=== PATIENT | female | born 1940 | race Two or more races ===

== ENCOUNTER 2018-06-26 19:21 | Inpatient (IN) | payer MEDICARE ==
[~2018-06-26] VITALS: Ht 165.1 cm; Wt 44.9 kg
[2018-06-26 19:30] VITALS: BP 101/58
--- NOTE | 2018-06-26 19:30 | NUR ---
GPS-RN ADMITTED A 78-Y/O FEMALE, FROM [facility]. PT IS ON 5150 HOLD FOR GRAVELY DISABLED. PER HOLD PATIENT UNABLE TO LIVE ON HER OWN SAFETY, HAD SEVERAL FALLS, REFUSED TO TAKE MEDICATIONS, PATIENT BECAME SO AGITATED AT THE MEMORY FACILITY THAT SHE HAD TO BE HOSPITALIZED. UPON FACE TO FACE ASSESSMENT, PATIENT APPEARS TO BE ALERT, CONFUSED, DISORGANIZED, UNCOOPERATIVE. NO ACUTE DISTRESS NOTED. INCONTINENT OF BOWEL AND BLADDER. AMBULATORY WITH ASSISTIVE DEVICE. BELONGINGS INVENTORIED AND CHECKED FOR CONTRABAND. PATIENT IS UNDER THE PSYCHIATRIC CARE OF DR. BIGGS, ORDERS OBTAINED, AND UNDER THE MEDICAL CARE OF DR. ADKINS, BOTH DOCTORS ARE AWARE OF THE ADMISSION. SKIN BODY ASSESSMENT DONE. BED LOCKED AND PLACED IN LOWEST POSITION. ROOM SAFETY CHECKED. FALL PRECAUTIONS IMPLEMENTED. NEXT OF KIN MERISSA PECK DAUGHTER MADE AWARE OF HER ADMISSION. WILL CONTINUE TO MONITOR Q15MIN ROUNDS FOR SAFETY AND BEHAVIOR.
[2018-06-26 20:27] VITALS: BP 101/48
[2018-06-26] MEDS ORDERED: LEVO25TA7 PO (20:34)
[2018-06-26] MEDS ORDERED: MAG HYDROX/AL HYDROX/SIMETH 30 ML UDC PO PRN (21:30)
[2018-06-26] MEDS ORDERED: MAGNESIUM HYDROXIDE 30 ML UDC PO PRN (21:30)
[2018-06-26] MEDS ORDERED: ACETAMINOPHEN 325 MG TABLET PO PRN (21:30)
[2018-06-26] MEDS ORDERED: SERT25TA PO (23:00)
[2018-06-26] MEDS ORDERED: QUET25TA PO (23:00)
[2018-06-27 07:23] LABS: BASOPHILS # (AUTO) 0.1 /CMM (0.0-0.2); BASOPHILS % (AUTO) 1.2 % (0.0-2.0); HEMATOCRIT 41 % (33-45); HEMOGLOBIN 13.3 g/dL (11.5-14.8); LYMPHOCYTES # (AUTO) 1.2 /CMM (0.8-4.8); LYMPHOCYTES % (AUTO) 26.6 % (20.0-44.0); MEAN CORPUSCULAR HEMOGLOBIN 32 PG (26.0-33.0); MEAN CORPUSCULAR HGB CONC 33 g/dl (31.0-36.0); MEAN CORPUSCULAR VOLUME 96 fL (82-100); MONOCYTES # (AUTO) 0.5 /CMM (0.1-1.30); MONOCYTES % (AUTO) 9.9 % (2.0-12.0); NEUTROPHILS # (AUTO) 2.7 /CMM (1.8-8.9); NEUTROPHILS % (AUTO) 57.3 % (43.0-81.0); PLATELET COUNT (AUTO) 298 /CMM (150-450); RDW COEFFICIENT OF VARIATION 13.2 (11.5-15.0); RED BLOOD CELL COUNT(AUTO) 4.21 MIL/uL (4.0-5.2); WHITE BLOOD COUNT (AUTO) 4.7 K/uL (4.3-11.0)
[2018-06-27 07:53] LABS: CHOLESTEROL 215 mg/dL (<200); HDL CHOLESTEROL 64 mg/dL (40-60); LDL 135 mg/dL (0-99); TRIGLYCERIDES 63 mg/dL (30-150)
[2018-06-27 07:59] LABS: ALANINE AMINOTRANSFERASE 22 U/L (12-78); ALKALINE PHOSPHATASE 49 U/L (46-116); ASPARTATE AMINOTRANSFERASE 22 U/L (15-37); BILIRUBIN,TOTAL 0.5 mg/dL (0.2-1.0); CALCIUM, SERUM 8.4 mg/dL (8.5-10.1); CARBON DIOXIDE 28 mmol/L (21-32); CHLORIDE 106 mmol/L (98-107); CREATININE 0.4 mg/dL (0.6-1.3); GLUCOSE 93 mg/dL (74-106); SODIUM SERUM 142 mmol/L (136-145); UREA NITROGEN, BLOOD 23 mg/dL (7-18)
[2018-06-27 08:00] VITALS: BP 100/65
[2018-06-27] MEDS ORDERED: QUETIAPINE FUMARATE 25 MG TABLET PO SCH (09:00)
--- NOTE | 2018-06-27 11:15 | NUR ---
FINESSE contacted pts ozzie Sauceda [phone] for collateral information and discharge planning. Addendum: 07/11/18 at 0835 by THIAGO KILPATRICK Pts ozzie Sauceda stated that pt will return to [facility] [address] [facility] [address]. Pts daughter also stated she was currently in [place] and couldn't be available until next week.
--- NOTE | 2018-06-27 14:15 | NUR ---
INITIAL DISCHARGE PLAN: Per pts daughter pt [place] [facility] [address] [place] [id number] . FINESSE spoke with [facility] certified wellness program manager at facility who stated pt can return to facility upon evaluation. FINESSE will help form a safe and proper discharge in collaboration with MD and pts daughter.
[2018-06-27 16:00] VITALS: BP 120/70
[2018-06-27 20:18] VITALS: BP 115/63
[2018-06-27] MEDS: risperiDONE 0.25 MG TABLET PO SCH (20:46)
[2018-06-27] MEDS: RIVASTIGMINE TARTRATE 1.5 MG CAPSULE PO SCH (20:46)
[2018-06-27] MEDS: TEMAZEPAM 7.5 MG CAPSULE PO PRN (22:43)
--- NOTE | 2018-06-27 22:43 | NUR ---
GPS-RN PATIENT C/O UNABLE TO STAY ASLEEP. VSS. ADMINISTERED RESTORIL 7.5MG PO ORDERED. WILL CONTINUE TO MONITOR.
[2018-06-28] MEDS ORDERED: QUET25TA PO (05:07)
[2018-06-28] MEDS ORDERED: SERT25TA PO (05:07)
[2018-06-28 08:00] VITALS: BP 120/52
[2018-06-28] MEDS: RIVASTIGMINE TARTRATE 1.5 MG CAPSULE PO SCH ×2 (09:03→17:37)
[2018-06-28] MEDS: risperiDONE 0.25 MG TABLET PO SCH ×2 (09:03→17:37)
--- NOTE | 2018-06-28 15:00 | NUR ---
GPS/RN DR ZAVALA NOTIFIED REGARDING PATIENT'S HOME MEDICATION OF LEVOTHYROXINE 25 MG DAILY. AWAITING INPUT IN SYSTEM.
[2018-06-28 16:00] VITALS: BP 122/75
--- NOTE | 2018-06-28 19:35 | NUR ---
RN INITIAL NOTES: PT IN THE ROOM, A/O X1-2,ON RA RESPIRATION EVEN AND UNLABORED, DENIES ANY PAIN OR DISCOMFORT AT THIS TIME, DENIES ANY SI/HI. PT IS DISORGANIZED, WITHDRAWN,ISOLATIVE, AND ENCOURAGEMENT TO PARTICIPATE IN ACTIVITIES WERE PROVIDED, REALITY ORIENTATION PROVIDED.PT IS MED COMPLIANT. SAFETY PRECAUTIONS FOR FALL INITIATED, WILL CONTINUE TO MONITOR FOR SAFETY [id number] AND FOR ANY CHANGES IN BEHAVIOR.
[2018-06-28 20:00] VITALS: BP 101/71
[2018-06-28 20:23] VITALS: BP 101/71
--- NOTE | 2018-06-29 06:46 | NUR ---
rn closing notes: pt remains isolative, but calm and cooperative, denies any pain or discomfort at this time denies any si/hi. vs remains stable, needs attended and anticipated. will continue to monitor pt safety [id number] and for any changes in behavior. will endorse to day rn for continuity of care.
[2018-06-29 08:00] VITALS: BP 100/59
[2018-06-29] MEDS: RIVASTIGMINE TARTRATE 1.5 MG CAPSULE PO SCH ×2 (08:43→17:09)
[2018-06-29] MEDS: risperiDONE 0.25 MG TABLET PO SCH ×2 (08:43→17:09)
--- NOTE | 2018-06-29 10:48 | NUR ---
WOUND CARE CONSULT: VERY LIMITED ASSESSMENT DUE TO PT REFUSING SKIN ASSESSMENT EXCEPT FOR RT ELBOW. SUTURES NOTED TO RT ELBOW WITH HEALED AREA AND SOME CRUSTING, NO DRAINAGE,NO REDNESS OR TENDERNESS. DEFER TO MD FOR ELBOW. WILL SEE PRN. PT IS AMBULATORY PER NURSING STAFF. Addendum: 06/29/18 at 1049 by WALT ECHEVERRIA WNDNU Amended: Links added.
[2018-06-29] MEDS: Z GUARD REMEDY 2 OZ OINT TP SCH ×2 (11:00→21:32)
--- NOTE | 2018-06-29 11:25 | NUR ---
gps security and privacy consultant: md visit seen by dr. oh at this time.
[2018-06-29 16:00] VITALS: BP 136/87
[2018-06-29 20:00] VITALS: BP 107/48
[2018-06-30 08:00] VITALS: BP 100/68
--- NOTE | 2018-06-30 12:00 | NUR ---
VISITOR IN TO SEE PT.
[2018-06-30] MEDS: RIVASTIGMINE TARTRATE 1.5 MG CAPSULE PO SCH ×2 (12:30→17:00)
--- NOTE | 2018-06-30 12:30 | NUR ---
REFUSED AM MEDS AT THIS TIME,NOT OFFERED EARLIER PT. DID NOT AWAKEN TILL AFTERNOON.
[2018-06-30] MEDS: LEVOTHYROXINE SODIUM 25 MCG TABLET PO SCH (13:38)
[2018-06-30] MEDS: risperiDONE 0.25 MG TABLET PO SCH ×2 (13:38→17:00)
[2018-06-30] MEDS: Z GUARD REMEDY 2 OZ OINT TP SCH ×2 (13:39→20:39)
[2018-06-30 15:55] LABS: CALCIUM, SERUM 8.9 mg/dL (8.5-10.1); CARBON DIOXIDE 30 mmol/L (21-32); CHLORIDE 103 mmol/L (98-107); CREATININE 0.5 mg/dL (0.6-1.3); GLUCOSE 106 mg/dL (74-106); PHOSPHORUS 3.4 mg/dL (2.5-4.9); SODIUM SERUM 138 mmol/L (136-145); UREA NITROGEN, BLOOD 23 mg/dL (7-18)
[2018-06-30 16:00] VITALS: BP 105/61
[2018-06-30 16:06] LABS: THYROID STIMULATING HORMONE 1.947 uIU/mL (0.358-3.74)
[2018-06-30 16:16] LABS: IRON, SERUM 126 ug/dl (50-175); TOTAL IRON BINDING CAPACITY 267 ug/dl (250-450)
--- NOTE | 2018-06-30 18:00 | NUR ---
UA SPECIMEN SENT PER ORDERS.
--- NOTE | 2018-06-30 18:24 | NUR ---
REFUSED CESAR. MEDS.
--- NOTE | 2018-06-30 19:30 | NUR ---
RN NOTES RECEIVED PATIENT IN BED WITH EYES CLOSED, EASILY AROUSABLE. AO X 1, ABLE TO MAKE NEEDS KNOWN. NO ACUTE DISTRESS NOTED. NO SIGNS OF PAIN NOTED. SAFETY REMINDERS GIVEN. ON LOW BED WITH BILATERAL UPPER SIDE RAILS UP. CALL MIGUEL WITHIN EASY REACH. WILL CONTINUE TO MONITOR.
[2018-06-30 20:00] VITALS: BP 116/74
--- NOTE | 2018-07-01 06:08 | NUR ---
RN NOTES PATIENT ASLEEP, EASILY AROUSABLE. RESPIRATIONS EVEN. NO SIGNS OF PAIN NOTED. NEEDS ATTENDED. SAFETY PRECAUTIONS AND COMFORT MEASURES IN PLACE. WILL GIVE REPORT TO DAY SHIFT FOR CONTINUITY OF CARE.
[2018-07-01 08:00] VITALS: BP 114/56
[2018-07-01] MEDS: risperiDONE 0.25 MG TABLET PO SCH ×2 (08:35→16:25)
[2018-07-01] MEDS: RIVASTIGMINE TARTRATE 1.5 MG CAPSULE PO SCH ×2 (08:36→16:25)
[2018-07-01] MEDS: LEVOTHYROXINE SODIUM 25 MCG TABLET PO SCH (08:36)
[2018-07-01] MEDS: Z GUARD REMEDY 2 OZ OINT TP SCH ×2 (08:39→21:04)
[2018-07-01 16:00] VITALS: BP 113/73
[2018-07-01 20:04] VITALS: BP 130/74
[2018-07-02 08:00] VITALS: BP 140/95
[2018-07-02] MEDS: LEVOTHYROXINE SODIUM 25 MCG TABLET PO SCH (08:30)
[2018-07-02] MEDS: Z GUARD REMEDY 2 OZ OINT TP SCH ×2 (08:31→21:09)
[2018-07-02] MEDS: RIVASTIGMINE TARTRATE 1.5 MG CAPSULE PO SCH ×2 (08:38→16:21)
[2018-07-02] MEDS: LORAZEPAM 0.5 MG TABLET PO PRN (08:38)
--- NOTE | 2018-07-02 08:42 | NUR ---
RN NOTES. MELITON AND VANESSA REFUSED BY PT AFTER OPENING, WASTED IN [employer] AND DISPOSED IN MED WASTE DISPOSAL.
--- NOTE | 2018-07-02 15:06 | NUR ---
FINESSE contacted [facility] [address] , [place] [address] and spoke with Rena legal coordinator to request an appointment for an evaluation. FINESSE informed facility that pt will be discharging this week. Rena stated that she would send [facility] solution coordinator an email to call back FINESSE and coordinate evaluation for this week.
[2018-07-02 16:00] VITALS: BP 127/69
[2018-07-02] MEDS: risperiDONE 1 MG TABLET PO SCH (17:00)
[2018-07-02] MEDS: Z GUARD REMEDY 2 OZ OINT TP PRN (21:07)
[2018-07-02 21:19] VITALS: BP 118/67
[2018-07-02] MEDS: TEMAZEPAM 7.5 MG CAPSULE PO PRN (21:40)
[2018-07-03 08:00] VITALS: BP 125/67
[2018-07-03] MEDS: risperiDONE 1 MG TABLET PO SCH ×2 (08:49→17:13)
[2018-07-03] MEDS: RIVASTIGMINE TARTRATE 1.5 MG CAPSULE PO SCH ×2 (08:49→17:13)
[2018-07-03] MEDS: LEVOTHYROXINE SODIUM 25 MCG TABLET PO SCH (08:49)
[2018-07-03] MEDS: Z GUARD REMEDY 2 OZ OINT TP SCH ×2 (09:03→21:25)
[2018-07-03 16:00] VITALS: BP 100/63
[2018-07-03 20:33] VITALS: BP 102/58
[2018-07-03] MEDS: Z GUARD REMEDY 2 OZ OINT TP PRN (21:18)
[2018-07-03 23:00] VITALS: BP 107/62
[2018-07-04 08:00] VITALS: BP 100/51
[2018-07-04] MEDS: risperiDONE 1 MG TABLET PO SCH ×2 (08:39→16:07)
[2018-07-04] MEDS: RIVASTIGMINE TARTRATE 1.5 MG CAPSULE PO SCH ×2 (08:39→16:07)
[2018-07-04] MEDS: Z GUARD REMEDY 2 OZ OINT TP SCH ×2 (08:40→21:20)
[2018-07-04] MEDS: LEVOTHYROXINE SODIUM 25 MCG TABLET PO SCH (08:40)
--- NOTE | 2018-07-04 08:40 | NUR ---
PT REFUSED AM PO MEDICATION. WOULD YELL AND SCREAM IF YOU TRY TO GIVE IT TO HER.
--- NOTE | 2018-07-04 11:41 | NUR ---
FINESSE contacted [facility] [address] [facility], [place] [id number] and spoke with Kisha pugh who stated [facility] admissions personnel will be coming on this present day to evaluate pt. Addendum: 07/04/18 at 1452 by THIAGO KILPATRICK [facility] admissions personnel.
[2018-07-04] MEDS ORDERED: LEVOTHYROXINE SODIUM 50 MCG TABLET PO ONE (14:00)
--- NOTE | 2018-07-04 14:17 | NUR ---
PT REFUSED AM MEDICATION EARLIER. NOW DAUGHTER OF PATIENT IS HERE AND SHE WAS ABLE TO CONVINCE PATIENT TO TAKE MEDICATION SHE REFUSED EARLIER. LEVO 50 MCG PO X 1 REORDERED. MEDICATION GIVEN.
[2018-07-04 16:00] VITALS: BP 109/81
[2018-07-04 19:44] VITALS: BP 112/60
[2018-07-04] MEDS: Z GUARD REMEDY 2 OZ OINT TP PRN (21:19)
[2018-07-05] MEDS: LEVOTHYROXINE SODIUM 25 MCG TABLET PO SCH (08:19)
[2018-07-05] MEDS: risperiDONE 1 MG TABLET PO SCH ×2 (08:19→16:44)
[2018-07-05] MEDS: RIVASTIGMINE TARTRATE 1.5 MG CAPSULE PO SCH ×2 (08:19→16:44)
--- NOTE | 2018-07-05 08:42 | NUR ---
FINESSE contacted [facility] [address] [place] [address] and spoke with Kisha real estate legal secretary to ask if Montez had come to assess pt. FINESSE informed Kisha that at the end of SW shift Montez still hadn't shown. Kisha stated that she believed he came to assess pt but would ask when he got in to the office and would have him call FINESSE back.
[2018-07-05] MEDS: Z GUARD REMEDY 2 OZ OINT TP SCH ×2 (09:00→21:00)
[2018-07-05 09:05] VITALS: BP 136/95
--- NOTE | 2018-07-05 11:54 | NUR ---
FINESSE spoke with Montez development executive at [facility] [address] , [place], [place] [id number] after he assessed pt. Montez stated that his impression is that pt needs more days of med compliance before pt is able to return to their facility. FINESSE will discuss with
[2018-07-05 16:59] VITALS: BP 113/62
[2018-07-05 20:00] VITALS: BP 113/41
[2018-07-06 08:00] VITALS: BP 100/59
[2018-07-06] MEDS: risperiDONE 0.25 MG TABLET PO SCH ×3 (10:48→17:00)
[2018-07-06] MEDS: LEVOTHYROXINE SODIUM 25 MCG TABLET PO SCH (10:48)
[2018-07-06] MEDS: RIVASTIGMINE TARTRATE 1.5 MG CAPSULE PO SCH ×3 (10:48→17:00)
[2018-07-06] MEDS: Z GUARD REMEDY 2 OZ OINT TP SCH ×2 (10:49→21:05)
[2018-07-06 16:00] VITALS: BP 129/72
--- NOTE | 2018-07-06 18:30 | NUR ---
GPS/RN PT REFUSED 1700 MEDS OFFERED X3. REFUSED TO TAKE MEDS FROM CHARGE NURSE TRINH RN WELL
[2018-07-07] MEDS: Z GUARD REMEDY 2 OZ OINT TP SCH ×2 (09:00→20:28)
[2018-07-07] MEDS: RIVASTIGMINE TARTRATE 1.5 MG CAPSULE PO SCH ×3 (09:00→17:15)
[2018-07-07] MEDS: risperiDONE 0.25 MG TABLET PO SCH ×3 (09:00→17:15)
[2018-07-07] MEDS: LEVOTHYROXINE SODIUM 25 MCG TABLET PO SCH ×3 (09:00→17:16)
--- NOTE | 2018-07-07 09:30 | NUR ---
Pt in room agressive behavior noted, refused am meds, and breakfast, will continue monitor behavior.
--- NOTE | 2018-07-07 13:30 | NUR ---
pt was visted by and was informed about pt 's behavior, still refusing meds, ate lunch, now out of room and ambulating with walker, still aggresive and flat affect, will continue monitoring behavior.
[2018-07-07 16:07] VITALS: BP 118/68
--- NOTE | 2018-07-07 16:49 | NUR ---
pt is in better mood now, out of room, ambulating in hallways, brayden offer meds later.
[2018-07-07 20:00] VITALS: BP 111/62
[2018-07-08 08:00] VITALS: BP 104/64
[2018-07-08] MEDS: risperiDONE 0.25 MG TABLET PO SCH ×2 (08:52→17:36)
[2018-07-08] MEDS: RIVASTIGMINE TARTRATE 1.5 MG CAPSULE PO SCH ×2 (08:55→17:36)
[2018-07-08] MEDS: Z GUARD REMEDY 2 OZ OINT TP SCH ×2 (08:55→20:18)
[2018-07-08] MEDS: LEVOTHYROXINE SODIUM 25 MCG TABLET PO SCH (09:00)
[2018-07-08 16:00] VITALS: BP 131/84
--- NOTE | 2018-07-08 16:44 | NUR ---
GPS/RN NOTE LEFT TO DR. BIGGS TO CALL PT'S DAUGHTER MERISSA PER HER REQUEST.
[2018-07-08 20:01] VITALS: BP 113/59
--- NOTE | 2018-07-09 06:12 | NUR ---
PATIENT REFUSED SKIN ASSESSMENT AND PHOTO TAKEN, IRRITABLE. PATIENT STATED, WILL YOU PLEASE LEAVE ME ALONE."
[2018-07-09 08:00] VITALS: BP 100/57
[2018-07-09] MEDS: risperiDONE 0.25 MG TABLET PO SCH ×2 (08:16→16:01)
[2018-07-09] MEDS: RIVASTIGMINE TARTRATE 1.5 MG CAPSULE PO SCH ×2 (08:16→16:01)
[2018-07-09] MEDS: LEVOTHYROXINE SODIUM 25 MCG TABLET PO SCH (08:16)
[2018-07-09] MEDS: Z GUARD REMEDY 2 OZ OINT TP SCH ×2 (09:00→21:41)
[2018-07-09 16:00] VITALS: BP 100/65
[2018-07-09 20:11] VITALS: BP 109/59
[2018-07-09] MEDS: Z GUARD REMEDY 2 OZ OINT TP PRN ×2 (21:17→21:40)
[2018-07-10] MEDS: LORAZEPAM 0.5 MG TABLET PO PRN (03:25)
--- NOTE | 2018-07-10 03:26 | NUR ---
GPS-RN PATIENT IS ANXIOUS AND RESTLESS. ADMINISTERED ATIVAN 0.5MG PO ORDERED. WILL CONTINUE TO MONITOR [id number] FOR SAFETY AND BEHAVIOR.
[2018-07-10 08:00] VITALS: BP 96/56
[2018-07-10] MEDS: LEVOTHYROXINE SODIUM 25 MCG TABLET PO SCH (08:42)
[2018-07-10] MEDS: RIVASTIGMINE TARTRATE 1.5 MG CAPSULE PO SCH ×2 (08:42→17:39)
[2018-07-10] MEDS: risperiDONE 0.25 MG TABLET PO SCH ×2 (08:42→17:39)
[2018-07-10] MEDS: Z GUARD REMEDY 2 OZ OINT TP SCH ×2 (08:44→20:59)
--- NOTE | 2018-07-10 09:30 | NUR ---
SW attempted to contact pts son Motnez [phone] to discuss discharge and transportation. SW left voicemail for callback.
--- NOTE | 2018-07-10 09:30 | NUR ---
SW attempted to contact pts daughter Komal [phone] to arrange transportation for discharge tomorrow 07/11/18 back to [facility]. SW left voicemail for callback.
--- NOTE | 2018-07-10 10:15 | NUR ---
SW contact pts daughter Komal [phone] to arrange transportation for discharge tomorrow 07/11/18, pts daughter stated to SW that pt was not ready for discharge as her step-father had notified her that pt wasn't well over the weekend and was still showing signs of aggression. Pts daughter stated that MD did not follow her direction to give pt the medications pt was on at [facility]. Pts daughter also stated that she wanted to speak to MD regarding medication and pts worsening behaviors. FINESSE explained to pts daughter that MD had cleared pt for discharge which meant she was stable for discharge and able to return to facility. FINESSE also informed pts daughter that Montez commercial lines account executive at [facility] had come on Monday07/06/18 to evaluate pt and he stated that pt would be able to return to the facility early this week based on his evaluation. Pts daughter stated that pt couldn't leave until her behaviors improved and also mentioned that she would come on this present day to do her own evaluation on pt and determine if she's stable or not. FINESSE stated that she would contact MD and ask him to call her back to discuss her concerns.
--- NOTE | 2018-07-10 10:20 | NUR ---
FINESSE contacted MD to discuss pts daughter concerns and to ask him to call pts daughter. MD stated that he would call pts daughter this afternoon after he evaluated pt. MD also stated that pt is stable for discharge and no longer met criteria for hospitalization.
--- NOTE | 2018-07-10 11:00 | NUR ---
FINESSE contacted Montez insurance sales executive at [facility] [phone] to inform him pt is discharging tomorrow 07/11/18. Montez stated it was okay and requested Rx be faxed. FINESSE transferred call to nurse to arrange Rx with facility.
--- NOTE | 2018-07-10 13:25 | NUR ---
FINESSE spoke to pts daughter Komal [phone] to inform her SW had spoken with MD and he would be calling her this afternoon after he evaluates pt. FINESSE also informed pts daughter that per MD Pt no longer meets criteria for hospitalization and MD has cleared pt for discharge tomorrow. FINESSE also explained that if pts daughter blocked discharge SW would have to give her the Medicare Letter of Denial which states that after 07/11/18 pt would be responsible for paying the Medicare hospital rate of about $1000/day. Pts daughter stated that she would appeal if it came down to it.
[2018-07-10 16:00] VITALS: BP 97/59
--- NOTE | 2018-07-10 16:00 | NUR ---
FINESSE spoke to pts daughter Komal [phone] after she spoke with MD, pts daughter informed FINESSE that she still feels pt isn't ready for discharge and would have to call [facility] to make sure they are able to take pt back. FINESSE explained to pts daughter that FINESSE had spoken with Montez brand executive of [facility] on this day to inform him that pt will be discharging tomorrow 07/11/18 and he stated that it was okay. Pts daughter stated she needed to speak with him personally to verify. Pts daughter also stated that she needed pts stitches to be removed before being discharged. FINESSE informed Komal that pts nurse had already sent a request to pts rn ent to evaluate stitches and remove if possible. FINESSE proceeded to provide pts daughter with transportation information. FINESSE informed Komal that transportation can be arranged through [facility] [employer] and that family would be responsible for payment. Komal agreed and requested a quote. FINESSE stared that she would contact her early next morning with the quote. Komal agreed.
[2018-07-10 20:15] VITALS: BP 114/58
--- NOTE | 2018-07-10 20:15 | NUR ---
GPS OVERFLOW RN NOTE: RECEIVED PATIENT FROM GPS, NO ACUTE DISTRESS NOTED. BREATHING EVEN AND UNLABORED, NO SOB NOTED. ORIENTED PATIENT TO ROOM, BED LOCKED AND IN LOWEST POSITION. PATIENT CALM AND COOPERATIVE, SITTER AT BEDSIDE. WILL CONTINUE TO MONITOR.
--- NOTE | 2018-07-11 03:30 | NUR ---
GPS OVERFLOW RN NOTE: PATIENT SLEEPING IN BED, NO ACUTE DISTRESS NOTED. BREATHING EVEN AND UNLABORED, NO SOB NOTED. BED LOCKED AND IN LOWEST POSITION, SITTER AT BEDSIDE. WILL CONTINUE TO MONITOR.
--- NOTE | 2018-07-11 06:05 | NUR ---
GPS OVERFLOW RN NOTE: PATIENT RESTING IN BED, NO ACUTE DISTRESS NOTED. BREATHING EVEN AND UNLABORED, NO SOB NOTED. PATIENT CALM AND COOPERATIVE, SITTER AT BEDSIDE. PATIENT SLEPT AT LEAST 6 HOURS. BED LOCKED AND IN LOWEST POSITION. WILL ENDORSE TO DAY NURSE TO CONTINUE WITH PLAN OF CARE.
[2018-07-11 06:41] VITALS: BP 97/59
[2018-07-11 08:00] VITALS: BP 86/54
--- NOTE | 2018-07-11 08:20 | NUR ---
FINESSE spoke to pts daughter Komal [phone] regarding transportation and provided her with [employer] phone number. Pts daughter stated she would contact [facility] to provide payment and have them call back to arrange leaf size picker time. Komal also stated that first she would be contacting [facility] to confirm readmission.
--- NOTE | 2018-07-11 08:45 | NUR ---
SW received a phone call from Wilder executive wellness programs director at [facility] [phone] stating they have not received Rx for pt. FINESSE transferred call to nurses station for Rx arrangement. FINESSE also [facility] before discharge.
[2018-07-11] MEDS: LORAZEPAM 0.5 MG TABLET PO PRN ×2 (09:01→15:23)
[2018-07-11] MEDS: RIVASTIGMINE TARTRATE 1.5 MG CAPSULE PO SCH ×2 (09:01→17:10)
[2018-07-11] MEDS: risperiDONE 0.25 MG TABLET PO SCH ×2 (09:01→17:11)
[2018-07-11] MEDS: LEVOTHYROXINE SODIUM 25 MCG TABLET PO SCH (09:01)
[2018-07-11] MEDS: Z GUARD REMEDY 2 OZ OINT TP SCH ×2 (09:02→20:40)
--- NOTE | 2018-07-11 10:30 | NUR ---
FINESSE received voicemail from pts daughter Komal [phone] stating that she will not call [facility] [employer] until [facility] receives signed Rx from hospital. SW returned phone call and stated that pts nurse has already contacted pts hospitalist and has requested a signature for Rx and will fax once signature is obtained. SW will call pts daughter back once Rx is signed and received at facility.
--- NOTE | 2018-07-11 15:22 | NUR ---
FINESSE met with pts daughter Komal [phone] and RN to discuss Rx. Komal stated that facility had contacted her stating that they were confused with the Rx they had received. Komal contacted [employer] and conducted a conference call with Montez engineering executive, [facility] skill training program, Jelani RIVERA RN, Komal, and FINESSE. Montez questioned description on Risperdal medication because the description stated; Risperidone is used to treat certain mental/ mood disorders (such as schizophrenia , bipolar disorder) Montez stated that he could not accept a pt with a schizophrenia Dx, SW and RN explained that description is a universal description but it is not pts Dx, Montez also asked why MD hadn't prescribed PRN's including Ativan, RN explained that when pts are discharged to a facility such as [facility] PRN's are not prescribed, RN stated it was hospital policy. Pts daughter Komal demanded the description be changed on medication and Ativan be prescribed if not she was going to cancel transportation and pt was going to stay in hospital on the "[facility]." FINESSE then informed Komal that description could not be changed and also that Ativan could not be prescribed due to hospital policy. FINESSE proceeded to hand pts daughter Medicare Letter of Denial and stated to pt that since DC has been ordered for this present day SW was obligated to provide daughter with the Medicare Letter of Denial, SW informed daughter that she respects her wish to appeal DC and acknowledged that it was her right to do so. FINESSE also stated that so it is official daughter should contact [facility] on this present day to make the appeal official. FINESSE explained that once appeal is made [facility] will make a ruling and if [facility] rules in favor of the hospital DC, pts daughter will be responsible for payment after this present day. Pts daughter understood and stated she would be contacting [facility]. Montez and daughter informed SW that they will wait until facility has medications on hand and have contacted Dr. Mayes; pts outside leveling machine operator, to request prescription of PRN's and Ativan, Komal stated that until this happens she will reschedule transportation with [employer].
[2018-07-11 16:10] VITALS: BP 101/61
[2018-07-11 20:00] VITALS: BP 106/62
--- NOTE | 2018-07-12 06:19 | NUR ---
RN NOTES PT SLEPT WELL OVERNIGHT , WHEN AWAKE PT IS CALM, QUIET AND COOPERATIVE WITH CARE. VITAL SIGNS STABLE, NO SIGNIFICANT CHANGE IN PT CONDITION NOTED. SAFETY MEASURES AND FALL PRECAUTION OBSERVED, SITTER AT BEDSIDE. WILL [id number] TO MONITOR PT.
[2018-07-12 07:54] VITALS: BP 107/74
--- NOTE | 2018-07-12 08:27 | NUR ---
FINESSE emailed pts daughter Komal at [email or web address] the following: "Attached you will find the Medicare Letter of Denial Under QIO ADDRESS it gives you [employer] contact information. Please call them immediately to make your appeal official." FINESSE also contacted Komal [phone] to inform her that direction on how to contact [facility] was on form. Komal stated that she had contacted [employer] yesterday evening left a message and also will be faxing a letter.
[2018-07-12] MEDS: risperiDONE 0.25 MG TABLET PO SCH (09:21)
[2018-07-12] MEDS: LEVOTHYROXINE SODIUM 25 MCG TABLET PO SCH (09:21)
[2018-07-12] MEDS: RIVASTIGMINE TARTRATE 1.5 MG CAPSULE PO SCH (09:21)
[2018-07-12] MEDS: Z GUARD REMEDY 2 OZ OINT TP SCH (09:22)
--- NOTE | 2018-07-12 10:12 | NUR ---
SW received phone call from pts daughter Komal [phone] confirming transportation for discharge on this present day at 11:30am with [facility] to [facility].
--- NOTE | 2018-07-12 11:12 | NUR ---
FINESSE faxed MEDICARE BENEFICIARY APPEAL DOCUMENTATION REQUEST to [facility] F:[phone] Control ID: [id number].
--- NOTE | 2018-07-12 12:00 | NUR ---
DISCHARGE NOTES PATIENT DISCHARGE AT THIS TIME GOING BACK TO [facility]. PATIENT A/O X3, MED COMPLIANT, V/S STABLE, MEDICALLY STABLE, REFUSED PAIN. PATIENT REFUSED SI/HI/AVH AT THIS TIME. MED RECONCILIATION AND DISCHARGE ORDER REVIEWED AND EXPLAINED TO PATIENT. PATIENT VERBALIZED UNDERSTANDING. BELONGING RETURNED BACK TO THE PATIENT. PATIENT'S DAUGHTER AWARE OF DISCHARGE PLANING. PATIENT BONE PLANT SUPERVISOR BY [employer].
--- NOTE | 2018-07-12 13:39 | NUR ---
DISCHARGE NOTE: Pt was discharged at 1200pm via [facility] to [facility] [address] [facility] [address] P:[phone]. Pts daughter Komal [phone] agree with discharge plan. Pts kat was confused and pleasant with congruent affect. Pt denied suicidal/homicidal ideations and denied visual/auditory hallucinations. Pt was referred to Psychiatrist: Shaista [facility] Address: [address] [place] [id number] and facility with scheduled a follow up appointment with Printer Technician: Dr. Manoj Mayes [address], [place] [address] [phone]. The multidisciplinary exitcare form was done, printed, signed, and given to the patient.
== END 2018-07-12 12:00 | DRG 885 ==
LOC: GPS 19:21 → GPSOV2 07-10 18:35
PROVIDERS: ADMIT Psychiatry & Neurology Psychiatry; ATTEND Psychiatry & Neurology Psychiatry
DX: F29 Unspecified psychosis not due to a substance or known physiological condition (principal); E43 Unspecified severe protein-calorie malnutrition; Z68.1 Body mass index [BMI] 19.9 or less, adult; E03.9 Hypothyroidism, unspecified; F03.90 Unspecified dementia, unspecified severity, without behavioral disturbance, psychotic disturbance, mood disturbance, and anxiety; E78.5 Hyperlipidemia, unspecified; Z79.899 Other long term (current) drug therapy; Z88.1 Allergy status to other antibiotic agents; Z88.0 Allergy status to penicillin; Z88.8 Allergy status to other drugs, medicaments and biological substances; Z73.6 Limitation of activities due to disability; R29.6 Repeated falls
CPT/HCPCS: 36415; 80048-TC; 80053-TC; 80061-TC; 82746; 83540-TC; 83735-TC; 84100-TC; 84300-TC; 84443-TC; 85025-TC; 87081-TC; 97116-TC; 97530-TC; A6402; Z7610